=== PATIENT | male | born 1995 | race Asian ===

== ENCOUNTER 2017-07-27 14:15 | Emergency (ER) | payer OTHER ==
[2017-07-27] MEDS ORDERED: Lidocaine/Epineph/Tetraca SOL* (LET solution) 4 ML BTL TOPICAL ONE (16:35)
--- NOTE | 2017-07-27 16:53 | ED ---
Skin Complaint - HPI Summary HPI Summary: Pt here w/ small laceration to Lt area above lip - happened earlier today while in weight room - was helping a friend remove metal ring locks at the end of the barbell when it spun and hit him. Minimal bleeding. No pain. Denies dental trauma and no LOC, MARINA, nausea, neck pain. He is here as he recently had a "staph " infection on his face for which he received bactroban. No cx, just clinical dx. Wound healed w/ bactroban. Last tetanus was in 2008. - History of Current Complaint Chief Complaint: EDFacialInjury Time Seen by Provider: 07/27/17 15:22 Stated Complaint: FACIAL LAC Hx Obtained From: Patient Pain Intensity: 1 - Allergy/Home Medications Allergies/Adverse Reactions: Allergies Allergy/AdvReac Type Severity Reaction Status Date / Time Penicillins [PCN] Allergy Unknown Unknown Verified 07/27/17 14:27 Reaction Details PMH/Surg Hx/FS Hx/Imm Hx Previously Healthy: Yes Endocrine/Hematology History: Denies: Hx Anticoagulant Therapy, Hx Blood Disorders Infectious Disease History: No Infectious Disease History: Reports: Traveled Outside the [place] in Last 30 Days - [place] - Family History Known Family History: Positive: None - Social History Occupation: Student Lives: With Family - roommates Alcohol Use: Occasionally Hx Substance Use: No Substance Use Type: Reports: None Hx Tobacco Use: No Smoking Status (MU): Never Smoked Tobacco Review of Systems Constitutional: Negative Negative: Fatigue Eyes: Negative Negative: Photophobia, Blurred Vision ENT: Negative Negative: Dental Pain Respiratory: Negative Negative: Shortness Of Breath Negative: Vomiting, Nausea Positive: no symptoms reported Musculoskeletal: Negative Skin: Other - see HPI Neurological: Negative Psychological: Normal All Other Systems Reviewed And Are Negative: Yes Physical Exam Triage Information Reviewed: Yes Vital Signs On Initial Exam: Initial Vitals Temp Pulse Resp BP Pulse Ox 98.2 F 57 16 138/63 98 07/27/17 14:24 07/27/17 14:24 07/27/17 14:24 07/27/17 14:24 07/27/17 14:24 Vital Signs Reviewed: Yes Appearance: Positive: Well-Appearing, No Pain Distress, Well-Nourished Skin: Positive: Warm - 0.25cm area of scabbed abrasion over Lt region of orbicularis nia (superior to lip - does not involve sandra border) - no active bleeding - attempted to clean and open - remains closed, Dry Head/Face: Positive: Normal Head/Face Inspection - NTTP, no gross deformity Eyes: Positive: Normal, EOMI, MICHAELA, Conjunctiva Clear ENT: Positive: Hearing grossly normal, Pharynx normal Neck: Positive: Supple Respiratory/Lung Sounds: Positive: Breath Sounds Present Cardiovascular: Positive: Normal Musculoskeletal: Positive: Normal, Strength/ROM Intact Neurological: Positive: Normal, Sensory/Motor Intact, Alert, Oriented to Person Place, Time, CN Intact II-III Psychiatric: Positive: Normal Procedures - Procedure Summary Procedure Summary: Applied LET to wound and rechecked - still unable to open - clotting within wound and appears well approximated. Diagnostics - Vital Signs Vital Signs Temp Pulse Resp BP Pulse Ox 07/27/17 16:13 98.2 F 57 16 138/63 99 07/27/17 14:24 98.2 F 57 16 138/63 98 - Laboratory Lab Statement: Any lab studies that have been ordered have been reviewed, and results considered in the medical decision making process. Course/Dx - Course Course Of Treatment: WIth recent h/o "staph", will provide pt with mupirocin topical. Wound has closed here today - no tissue to close. He voices concern about asthetic repair - provided with plastic surgery contact information to call tomorrow morning as desired. - Diagnoses Provider Diagnoses: Facial abrasion Discharge - Discharge Plan Condition: Stable Disposition: HOME Prescriptions: Mupirocin 2% OINT* [Bactroban 2 % Oint*] 1 applic TOPICAL BID #1 tube Patient Education Materials: Facial Laceration (ED) Referrals: [facility] [Primary Care Provider] - Morteza Diaz MD [Medical Doctor] - Additional Instructions: Gently wash wound daily with soap and water - pet dry with clean cloth and apply mupirocin 2-3 x day until wound heals If wound opens and starts bleeding, you may consult with plastic surgery - contact information included here.
[2017-07-27] MEDS ORDERED: Tetanus-Diptheria Toxoids* 0.5 ML SYRINGE IM ONE (18:00)
[2017-07-27 18:01] VITALS: BP 135/71
== END 2017-07-27 18:11 | disposition home or self-care (01) ==
LOC: ED 14:15
DX: S00.81XA Abrasion of other part of head, initial encounter (principal); W22.8XXA Striking against or struck by other objects, initial encounter; Y93.B9 Activity, other involving muscle strengthening exercises; Y92.89 Other specified places as the place of occurrence of the external cause
CPT/HCPCS: 96372; 99281

== ENCOUNTER 2018-02-21 12:30 | Emergency (ER) | payer OTHER ==
--- NOTE | 2018-02-21 14:19 | RAD ---
HISTORY: Fall, trauma COMPARISONS: None TECHNIQUE: Multiple contiguous axial CT scans were obtained of the head without intravenous contrast. FINDINGS: HEMORRHAGE/INFARCT: There is no hemorrhage or acute infarct. MASSES/SHIFT: There is no mass or shift. EXTRA-AXIAL SPACES: There are no extra-axial fluid collections. SULCI AND VENTRICLES: The sulci and ventricles are normal in size and position for the patient's stated age. CEREBRUM: There are no focal parenchymal abnormalities. BRAINSTEM: There are no focal parenchymal abnormalities. CEREBELLUM: There are no focal parenchymal abnormalities. VESSELS: The vessels are grossly normal. PARANASAL SINUSES: The paranasal sinuses are clear. ORBITS: The orbits are unremarkable. BONES AND SOFT TISSUE: No bone or soft tissue abnormalities are noted. OTHER: None IMPRESSION: NO ACUTE INTRACRANIAL PATHOLOGY.
[2018-02-21 15:35] VITALS: BP 156/76
--- NOTE | 2018-02-21 15:40 | ED ---
Head Injury - HPI Summary HPI Summary: Patient is an otherwise healthy 23-year-old male presenting to the ED with a chief complaint of head injury which occurred approximately 1.5 hours prior to arrival. He endorses some blurry vision, double vision, headache more specifically to the right temporal region. Denies any neck pain. History of anxiety and states he is feeling anxious at this time with numbness and tingling in the bilateral fingertips. He states he was coming down a staircase today at his apartment complex when he had a mechanical fall resulting in an injury to the back of his head. Denies any pain in that region at this point. Endorses one episode of emesis 1 hour after the fall. He takes no medications. Patient is a student at [employer]. Endorses loss of consciousness 5 seconds. Fall was unwitnessed. - History Of Current Complaint Chief Complaint: EDHeadInjury Stated Complaint: FALL/POSS HEAD INJURY Time Seen by Provider: 02/21/18 12:52 Hx Obtained From: Patient Mechanism Of Injury: Blunt Trauma Onset/Duration: Started Hours Ago Onset of Pain: Hours Severity Currently: Moderate Severity Initially: Moderate Pain Intensity: 2 Pain Scale Used: 0-10 Numeric Character: Throbbing, Pressure Aggravating Factor(s): Movement Alleviating Factor(s): Rest Associated Signs And Symptoms: LOC (Time In Secs./Mins/Hrs) - Allergies/Home Medications Allergies/Adverse Reactions: Allergies Allergy/AdvReac Type Severity Reaction Status Date / Time MS Penicillins [PCN] Allergy Unknown Unknown Verified 02/21/18 13:52 Reaction Details PMH/Surg Hx/FS Hx/Imm Hx Previously Healthy: Yes Endocrine/Hematology History: Denies: Hx Anticoagulant Therapy, Hx Blood Disorders - Immunization History Hx Pertussis Vaccination: No Immunizations Up to Date: Unable to Obtain/Confirm Infectious Disease History: No Infectious Disease History: Denies: Traveled Outside the [place] in Last 30 Days - Family History Known Family History: Positive: None - Social History Occupation: Unemployed, Student Lives: With Family Alcohol Use: Occasionally Hx Substance Use: No Substance Use Type: Reports: None Hx Tobacco Use: No Smoking Status (MU): Never Smoked Tobacco Review of Systems Constitutional: Negative Eyes: Negative Respiratory: Negative Gastrointestinal: Negative Positive: no symptoms reported, see HPI Musculoskeletal: Negative Neurological: Negative All Other Systems Reviewed And Are Negative: Yes Physical Exam Triage Information Reviewed: Yes Vital Signs On Initial Exam: Initial Vitals Temp Pulse Resp BP Pulse Ox 99.0 F 68 20 188/85 98 02/21/18 12:32 02/21/18 12:32 02/21/18 12:32 02/21/18 12:32 02/21/18 12:32 Vital Signs Reviewed: Yes Appearance: Positive: Well-Appearing, Well-Nourished Skin: Positive: Warm, Skin Color Reflects Adequate Perfusion Head/Face: Positive: Normal Head/Face Inspection Eyes: Positive: EOMI, MICHAELA, Conjunctiva Clear Neck: Positive: Supple, No Lymphadenopathy Respiratory/Lung Sounds: Positive: Clear to Auscultation, Breath Sounds Present Cardiovascular: Positive: Normal, RRR, Pulses are Symmetrical in both Upper and Lower Extremities Musculoskeletal: Positive: Normal, Strength/ROM Intact Neurological: Positive: Speech Normal Psychiatric: Positive: Normal, Affect/Mood Appropriate AVPU Assessment: Alert Diagnostics - Vital Signs Vital Signs Temp Pulse Resp BP Pulse Ox 02/21/18 15:32 99.4 F 100 18 156/76 100 02/21/18 14:07 99.6 F 79 16 146/61 98 02/21/18 12:32 99.0 F 68 20 188/85 98 - Laboratory Lab Statement: Any lab studies that have been ordered have been reviewed, and results considered in the medical decision making process. Head Injury Course/Dx Course Of Treatment: During the course of treatment, the patient is evaluated for head injury and possible concussion. After discussing the risks and benefits of a CT scan I have advised him not to proceed with a CT scan at this time due to his symptoms. He likely has a concussion and due to no headache at this time, I am not concerned with a brain bleed. He states he had called his mother who is requesting a CT scan to which I'm obliging. CT scan is obtained which shows no acute intracranial abnormalities. Blood work was not obtained. He states he feels improved prior to discharge. Patient was offered Tylenol and he declines at this time. Concussive symptoms and improvement protocol is discussed with patient and he agrees. No given for school. - Diagnoses Differential Diagnosis/HQI/PQRI: Concussion With LOC, Concussion Without LOC Provider Diagnoses: Concussion Discharge - Sign-Out/Discharge Documenting (check all that apply): Discharge - Discharge Plan Condition: Stable Disposition: HOME Patient Education Materials: Concussion (ED) Forms: *School Release Referrals: [facility] - Cullen MACKAY [Primary Care Provider] - Additional Instructions: As discussed, you have a mild concussion Best practice for faster improvement include brain rest Do not look at bright lights against a dark background. Do not read and wrist or focus on something for more than a few minutes at a time Sleep as much as possible If you develop worsening or changing symptoms, return to the ED - Billing Disposition and Condition Condition: STABLE Disposition: HOME
== END 2018-02-21 15:32 | disposition home or self-care (01) ==
LOC: ED 12:30
DX: S06.0X0A Concussion without loss of consciousness, initial encounter (principal); W10.9XXA Fall (on) (from) unspecified stairs and steps, initial encounter; Y92.039 Unspecified place in apartment as the place of occurrence of the external cause; R11.10 Vomiting, unspecified; Z88.0 Allergy status to penicillin
CPT/HCPCS: 70450; 99282